=== PATIENT | male | born 1980 | race Caucasian/White ===

== ENCOUNTER → 2023-11-16 | Outpatient (CLI) | payer OTHER, SELFPAY ==
--- NOTE | 2023-11-16 08:20 | RAD_ITS ---
STUDY: X-RAY - ESOPHAGUS (BARIUM SWALLOW) WITH FLUOROSCOPY REASON FOR EXAM: Male, 43 years old. Dysphagia, pharyngeal phase TECHNIQUE: 18 view(s) of the esophagus were obtained following swallowing of barium. FLUOROSCOPY TIME (if supplied): (27 seconds) minutes/seconds. 9.71 mGy. COMPARISON: None. FINDINGS: There is no demonstrated esophageal foreign body. There is no demonstrated stricture or mucosal abnormality. Normal gastroesophageal junction, without a demonstrated hiatal hernia. The patient ingested a 12 mm tablet of barium. The tablet is trapped at the gastroesophageal junction. Normal visualized aortic arch and descending thoracic aorta. Normal visualized pulmonary parenchyma. Normal visualized osseous structures of the thorax. RAD/Esophagus Dual Contrast IMPRESSION: The ingested 12 mm tablet of barium is trapped at the gastroesophageal junction. Electronically Signed: Alok Holt MD at 13:19 EDT ,
== END | disposition home or self-care (01) ==
LOC: RAD 08:19
PROVIDERS: PCP Physician Assistant; Referring Provider Otolaryngology; Visit Provider Otolaryngology
DX: R13.13 Dysphagia, pharyngeal phase (principal)
CPT/HCPCS: 74221

== ENCOUNTER → 2025-01-27 | Outpatient (CLI) | payer OTHER, SELFPAY ==
--- OUTSIDE RECORDS SUMMARY | 2025-01-27 15:26 | XMS RPT_ITS | CCD ---
Author Organization [facility] Care Team Providers Care Commercial Crabber Name Role Phone Alok Pinto PA-C Unavailable Alok Pinto PA-C Unavailable Farhan GAGNON, Dr. White Unavailable [phone] Mana Rm MA Unavailable Unavailable Zbigniew Morales LPN Unavailable Unavailable Sujey Pinto Unavailable Unavailable Unavailable Unavailable Christopher Real Referring Unavailable Christopher Real Attending Unavailable Alok Pinto Primary Care Unavailable Patience Schneider LPN Unavailable (Ching), [facility] Unavailable Medications Completed/Discontinued Medications Medication Drug Class(es) Dates Sig (Normalized) Sig (Original) amoxicillin 875 mg / clavulanate 125 mg oral tablet (6 sources) Penicillin-class Antibacterial Start: 10-19-2023 End: 10-29-2023 amoxicillin 875 mg-potassium clavulanate 125 mg tablet ; 1 (one) tablet two times daily for 10 days Quantity: 20 {Tablet} Refills: 0 Ordered: 19-Oct-2023 RADHA Pinto Start: 19-Oct-2023 End: 29-Oct-2023 Status: Inactive fluconazole 150 mg oral tablet (4 sources) Azole Antifungal Start: 12-02-2023 End: 12-09-2023 fluconazole 150 mg tablet ; 1 (one) tablet daily for 7 days Quantity: 7 {Tablet} Refills: 0 Ordered: 02-Dec-2023 OLIVA Schneider Start: 02-Dec-2023 End: 09-Dec-2023 Status: Inactive ketoconazole 20 mg/ml topical cream (5 sources) Azole Antifungal Start: 01-07-2024 End: 02-04-2024 ketoconazole 2 % topical cream ; 1 application 2 times per day for 28 days Quantity: 80 {Gram} Refills: 0 Ordered: 07-Jan-2024 RADHA Pinto Start: 07-Jan-2024 End: 04-Feb-2024 Status: Inactive Start: 11-03-2023 End: 11-17-2023 ketoconazole 2 % topical cre am ; 1 application 2 times per day for 14 days Quantity: 60 {Gram} Refills: 0 Ordered: 03-Nov-2023 RADHA Pinto Start: 03-Nov-2023 End: 17-Nov-2023 Status: Inactive Problems Active Problems Problem Classification Problem Date Documented Da te Episodic/Chronic Abdominal hernia (20 sources) Umbilical hernia; Translations: [Umbilical hernia without obstruction or gangrene] 08-28-2023 Episodic Allergic reactions (4 sources) Contact dermatitis; Translations: [Unspecified contact dermatitis, unspecified cause] 02-18-2024 Episodic Mycoses (14 sources) Dermatophytosis; Translations: [Dermatophytosis, unspecified] 11-03-2023 Episodic Other connective tissue disease (20 sources) Prepatellar bursitis of right knee; Translations: [Prepatellar bursitis, right knee] 08-28-2023 Episodic Other gastrointestinal disorders (1 source) Dysphagia, pharyngeal phase; Translations: [Dysphagia, pharyngeal phase] Onset: 11-19-2023 Episodic Other screening for suspected conditions (not mental disorders or infectious disease) (20 sources) Patient encounter status; Translations: [Encounter for screening for malignant neoplasm of colon] 08-28-2023 Episodic Other upper respiratory disease (20 sources) Nasal congestion; Translations: [Nasal congestion] 08-28-2023 Episodic Other upper respiratory infections (12 sources) Sinusitis; Translations: [Chronic sinusitis, unspecified] 10-19-2023 Chronic Past or Other Problems Problem Classification Problem Date Documented Da te Episodic/Chronic Unclassified (12 sources) Well adult male - The patient feels well with minor complaints (Patient interested in screening for colorectal cancer since he recently had a friend younger than him who from colon cancer; patient also is concerned for restricted airflow and snoring which he believes is due to obstruction of his nose, he is interested in referral to ENT; patient also notes concern for umbilical hernia which he believes appeared after gaining weight, patient denies pain and states the mass is soft.), has good energy level and is sleeping poorly. The patient has a balanced diet and takes supplemental vitamins (vitamin D). The patient does not exercise. The patient sleeps 5 hours per night. 08-28-2023 Unclassified (14 sources) Knee pain - The onset of the knee pain has been sudden following an incident not at work (Fell onto knee on concrete floor.) and has been occurring in a persistent pattern for 3 weeks. The course has been increasing. The knee pain is mild to moderate in the right knee. The knee pain is characterized as a burning sensation. Note for Knee pain: Pt went to urgent care in [place] DX: Bursitis, given ATB, cephalexin-finished yesterday. Feels like One big bruise on knee down leg 06-30-2023 Unclassified (6 sources) Cold Symptoms - Symptoms include nasal congestion, runny nose, sore throat and dry cough, but do not include fever. The onset was 8 day(s) ago. The symptoms occur constantly. The patient describes this as moderate in severity and worsening. Current treatment includes NSAIDs. 10-19-2023 Unclassified (5 sources) Rash - The rash has been occurring for 2 years. The course has been increasing. The rash is characterized as red and crusty. The rash was first seen on the upper extremity and the lower extremity. There has been associated erythema. There has been associated pain. Note for Rash: Patient has areas on both hands and both feet. Has had for several years, was treated before by phlebotomy lab assistant for feet, he believes a topical antifungal used which did help to improve symptoms. Patient believes it to be a fungal infection but states that symptoms are refractory to use of OTC Lotrimin and Gold Coates Powder. 11-03-2023 Unclassified (2 sources) Rash - Note for Rash: Patient seen in office 11/03/23 for tinea. Patient treated with ketoconazole cream for 6 weeks total and oral medication (fluconazole). Today is a good day, but has flares primarily when in contact with grass and insect bites. Last flare 02/02/24, has pictures of rash. 02-18-2024 Results Test Name Value Interpretation Reference Range Facility Esophagus Dual Contraston Esophagus Dual Contrast [facility] Imaging Services [address] [place] [address] Esophagus Dual Contrast MR#: [id number] Acct: [id number] Name: ESTEBAN DEL VALLE Rep #: [id number] : 1980 M 43 From: Alok argueta MD PCP: FEROZ Maradiaga Status: REG CLI Study: Esophagus Dual Contrast Date of Exam: 11/16/23 Exam# [id number] Ordering Dr: Christopher Real MD [id number] STUDY: X-RAY - ESOPHAGUS (BARIUM SWALLOW) WITH FLUOROSCOPY REASON FOR EXAM: Male, 43 years old. Dysphagia, pharyngeal phase TECHNIQUE: 18 view(s) of the esophagus were obtained following swallowing of barium. FLUOROSCOPY TIME (if supplied): (27 seconds) minutes/seconds. 9.71 mGy. COMPARISON: None. FINDINGS: There is no demonstrated esophageal foreign body. There is no demonstrated stricture or mucosal abnormality. Normal gastroesophageal junction, without a demonstrated hiatal hernia. The patient ingested a 12 mm tablet of barium. The tablet is trapped at the gastroesophageal junction. Normal visualized aortic arch and descending thoracic aorta. Normal visualized pulmonary parenchyma. Normal visualized osseous structures of the thorax. RAD/Esophagus Dual Contrast IMPRESSION: The ingested 12 mm tablet of barium is trapped at the gastroesophageal junction. Electronically Signed: Alok Holt MD at 13:19 EDT , CC: Dr. Christopher Real MD; FEROZ Maradiaga Extruding Machine Operator: Signed Normal [facility] COMPREHENSIVE METABOLIC PANE Chris 09-02-2023 Albumin [Mass/Vol] 4.4 g/dL Normal 3.6-5.1 [facility] Comment on above: Performed By: #### 7 600, [id number] #### [facility] of [address], [address] [place] [address] Braid Folder: Yahir Lewis MD Albumin/Globulin [Mass ratio] 1.8 {ratio} Normal 1.0-2.5 [facility] Comment on above: Performed By: #### 7 600, [id number] #### [facility] of [address], [address] [place] [address] Braid Folder: Yahir Lewis MD ALP [Catalytic activity/Vol] 67 U/L Normal 36-130 [facility] Comment on above: Performed By: #### 7 600, 18741 #### [facility] of [address], [address] [place] [address] Braid Folder: Yahir Lewis MD ALT [Catalytic activity/Vol] 24 U/L Normal 9-46 [facility] Comment on above: Performed By: #### 7 600, 99574 #### [facility] of [place] [address] Braid Folder: Yahir Lewis MD AST [Catalytic activity/Vol] 17 U/L Normal 10-40 [facility] Comment on above: Performed By: #### 7 600, 77809 #### [facility] of [address], [address] [place] [address] Braid Folder: Yahir Lewis MD Bilirubin [Mass/Vol] 0.6 mg/dL Normal 0.2-1.2 [facility] Comment on above: Performed By: #### 7 600, 23209 #### [facility] of [place] [address] Braid Folder: Yahir Lewis MD BUN/CREATININE RATIO SEE NOTE: Normal 6-22 [facility] Comment on above: Result Comment: Not Reported: BUN and Creatinine are within reference range. Performed By: #### 7 600, [id number] #### [facility] of [address], [address] [place] [address] Braid Folder: Yahir Lewis MD Calcium [Mass/Vol] 9.6 mg/dL Normal 8.6-10.3 [facility] Comment on above: Performed By: #### 7 600, 66811 #### [facility] of [address], [address] [place] [address] Braid Folder: Yahir Lewis MD Chloride [Moles/Vol] 105 mmol/L Normal 98-110 [facility] Comment on above: Performed By: #### 7 600, 75180 #### [facility] of [place] [address] Braid Folder: Yahir Lewis MD CO2 [Moles/Vol] 28 mmol/L Normal 20-32 [facility] Comment on above: Performed By: #### 7 600, 96656 #### [facility] of [place] [address] Braid Folder: Yahir Lewis MD Creatinine [Mass/Vol] 0.92 mg/dL Normal 0.60-1.29 [facility] Comment on above: Performed By: #### 7 600, 90346 #### [facility] of [place] [address] Braid Folder: Yahir Lewis MD GFR/1.73 sq M.predicted among non-blacks MDRD (S/P/Bld) [Vol rate/Area] 107 mL/min/{1.73_m2} Normal > OR = 60 [facility] Comment on above: Performed By: #### 7 600, 39482 #### [facility] of [place] [address] Braid Folder: Yahir Lewis MD Globulin (S) [Mass/Vol] 2.4 g/dL Normal 1.9-3.7 [facility] Comment on above: Performed By: #### 7 600, 16744 #### [facility] of [place] [address] Braid Folder: Yahir Lewis MD Glucose [Mass/Vol] 100 mg/dL High 65-99 [facility] Comment on above: Result Comment: Fasting reference interval For someone without known diabetes, a glucose value between 100 and 125 mg/dL is consistent with prediabetes and should be confirmed with a follow-up test. Performed By: #### 7 600, 27664 #### [facility] [address], [address] [place] [address] Braid Folder: Yahir Lewis MD Potassium [Moles/Vol] 5.1 mmol/L Normal 3.5-5.3 [facility] Comment on above: Performed By: #### 7 600, 20160 #### [facility] [place] [address] Braid Folder: Yahir Lewis MD Protein [Mass/Vol] 6.8 g/dL Normal 6.1-8.1 [facility] Comment on above: Performed By: #### 7 600, 52972 #### [facility] [place] [address] Braid Folder: Yahir Lewis MD Sodium [Moles/Vol] 140 mmol/L Normal 135-146 [facility] Comment on above: Performed By: #### 7 600, 07935 #### [facility] [place] [address] Braid Folder: Yahir Lewis MD Urea nitrogen [Mass/Vol] 16 mg/dL Normal 7-25 [facility] Comment on above: Performed By: #### 7 600, 53979 #### [facility] of [place] [address] Braid Folder: Yahir Lewis MD LIPID PANEL, [facility] 08-14 Cholesterol [Mass/Vol] 186 mg/dL Normal <200 [facility] Comment on above: Performed By: #### 7 600, 85612 #### [facility] [place] [address] Braid Folder: Yahir Lewis MD Cholesterol in HDL [Mass/Vol] 38 mg/dL Low > OR = 40 [facility] Comment on above: Performed By: #### 7 600, 19363 #### [facility] [place] [address] Braid Folder: Yahir Lewis MD Cholesterol in LDL [Mass/Vol] 117 mg/dL High [facility] Comment on above: Result Comment: Refe rence range: <100 Desirable range <100 mg/dL for primary prevention; <70 mg/dL for patients with CHD or diabetic patients with > or = 2 CHD risk factors. LDL-C is now calculated using the Chester calculation, which is a validated novel method providing better accuracy than the Friedewald equation in the estimation of LDL-C. Demarco SS et al. GIOVANI. 2013;310(19): 9189-5208 (http://education.Fanergies/faq/UDL814) Performed By: #### 7 600, 36773 #### [facility] [place] [address] Braid Folder: Yahir Lewis MD Cholesterol.total/C holesterol in HDL [Mass ratio] 4.9 {ratio} Normal <5.0 [facility] Comment on above: Performed By: #### 7 600, 74935 #### [facility] [place] [address] Braid Folder: Yahir Lewis MD NON HDL CHOLESTEROL 148 mg/dL (calc) High <130 [facility] Comment on above: Result Comment: For patients with diabetes plus 1 major ASCVD risk factor, treating to a non-HDL-C goal of <100 mg/dL (LDL-C of <70 mg/dL) is considered a therapeutic option. Performed By: #### 7 600, 20683 #### [facility] [place] [address] Braid Folder: Yahir Lewis MD Triglyceride [Mass/Vol] 193 mg/dL High <150 [facility] Comment on above: Performed By: #### 7 600, 73766 #### [facility] [address] [address] Braid Folder: Yahir Lewis MD Laboratory - Chemistry and C hemistry - challengeon 09-01-2023 Albumin [Mass/Vol] 4.4 g/dL Normal 3.6 - 5.1 g/dL [facility], [facility].; [facility] Albumin/Globulin [Mass ratio] 1.8 {ratio} Normal 1.0 - 2.5 [facility], [facility].; [facility] ALP [Catalytic activity/Vol] 67 U/L Normal 36 - 130 U/L [facility], [facility].; [facility] ALT [Catalytic activity/Vol] 24 U/L Normal 9 - 46 U/L [facility], [facility].; [facility] AST [Catalytic activity/Vol] 17 U/L Normal 10 - 40 U/L [facility], [facility].; [place] [employer] [facility], [facility]. Bilirubin [Mass/Vol] 0.6 mg/dL Normal 0.2 - 1.2 mg/dL [facility], [facility].; [place] [employer] [facility] Calcium [Mass/Vol] 9.6 mg/dL Normal 8.6 - 10. 3 mg/dL [facility], [facility].; [place] [employer] [facility] Chloride [Moles/Vol] 105 mmol/L Normal 98 - 110 mmol/L [facility], [facility].; [place] [employer] [facility] Cholesterol [Mass/Vol] 186 mg/dL Normal [facility], [facility].; [facility] Cholesterol in HDL [Mass/Vol] 38 mg/dL Abnormal [facility], [facility].; [place] [employer] [facility] Cholesterol in LDL [Mass/Vol] 117 mg/dL Abnormal [facility], [facility].; [place] [employer] CO2 [Moles/Vol] 28 mmol/L Normal 20 - 32 mmol/L [facility], [facility].; [place] [employer] [facility] Creatinine [Mass/Vol] 0.92 mg/dL Normal 0.60 - 1.29 mg/dL [facility], [facility].; [place] [employer] [facility] GFR/1.73 sq M.predicted among non-blacks MDRD (S/P/Bld) [Vol rate/Area] 107 mL/min/{1.73_m2} Normal [facility], [facility].; [facility], [facility] Glucose [Mass/Vol] 100 mg/dL Abnormal 65 - 99 mg/dL [facility].; [facility], [facility] Potassium [Moles/Vol] 5.1 mmol/L Normal 3.5 - 5.3 mmol/L [facility]; [facility], [facility] Protein [Mass/Vol] 6.8 g/dL Normal 6.1 - 8.1 g/dL [facility]; [facility], [facility] Sodium [Moles/Vol] 140 mmol/L Normal 135 - 146 mmol/L [facility]; [facility], [facility] Triglyceride [Mass/Vol] 193 mg/dL Abnormal [facility]; [facility], [facility] Urea nitrogen [Mass/Vol] 16 mg/dL Normal 7 - 25 mg/dL [facility]; [facility], [facility] No Panel Informationon 09-01 BUN/CREATININE RATIO SEE NOTE: Normal 6 - 22 [facility]; [facility], [facility] CHOL/HDLC RATIO 4.9 Normal [facility]; [facility], [facility] GLOBULIN 2.4 Normal 1.9 - 3.7 [facility]; [facility], [facility] NON HDL CHOLESTEROL 148 Abnormal [facility]; [facility], [facility] Vital Signs Date Time Vital Sign Value Performing Clinician Facility 02-18-2024 14:30-040 Body height 190.5 cm Zbigniew Morales LPN [facility], [facility].; [facility], [facility] 02-18-2024 14:30-0400 Body mass index (BMI) [Ratio] 32 kg/m2 Zbigniew Morales LPN [facility], [facility].; [facility], [facility] 02-18-2024 14:30-040 Body surface area Derived from formula 2.44 m2 Zbigniew Morales LPN [facility], [facility].; [facility], [facility] 02-18-2024 14:30-040 Body weight 116.12 kg Zbigniew Morales LPN [facility], [facility].; [facility], [facility]. 02-18-2024 14:30-0400 Diastolic blood pressure 73 mm[Hg] Zbigniew Morales LPN [facility], [facility].; [facility], [facility]. Comment on above: Patient Position: Sitting; Cuff Location : Left Arm; Cuff Size: Standard 02-18-2024 14:30-0400 Heart rate 69 /min Zbigniew Morales LPN [facility], [facility].; [facility], [facility]. Comment on above: Pattern: Regular 02-18-2024 14:30-0400 Systolic blood pressure 118 mm[Hg] Zbigniew Morales LPN [facility], [facility].; [facility], [facility]. Comment on above: Patient Position: Sitting; Cuff Location : Left Arm; Cuff Size: Standard 11-03-2023 10:17-0400 Body height 190.5 cm Zbigniew Morales RADIAL DRILL OPERATOR [facility], [facility].; [facility], [facility]. 11-03-2023 10:17-0400 Body mass index (BMI) [Ratio] 32.37 kg/m2 Zbigniew Morales RADIAL DRILL OPERATOR [facility], [facility].; [facility], [facility]. 11-03-2023 10:17-0400 Body surface area Derived from formula 2.45 m2 Zbigniew Morales RADIAL DRILL OPERATOR [facility], [facility].; [facility], [facility]. 11-03-2023 10:17-0400 Body weight 117.48 kg Zbigniew Morales RADIAL DRILL OPERATOR [facility], [facility].; [facility], [facility]. 11-03-2023 10:17-0400 Diastolic blood pressure 61 mm[Hg] Zbigniew Morales LPN [facility], [facility].; [place] [employer] [facility], [facility]. Comment on above: Patient Position: Sitting; Cuff Location : Left Arm; Cuff Size: Standard 11-03-2023 10:17-0400 Heart rate 59 /min Zbigniew Morales LPN [facility], [facility].; [place] [employer] [facility] Comment on above: Pattern: Regular 11-03-2023 10:17-0400 Systolic blood pressure 96 mm[Hg] Zbigniew Morales LPN [facility], [facility].; [facility], [facility]. Comment on above: Patient Position: Sitting; Cuff Location : Left Arm; Cuff Size: Standard 10-19-2023 09:59-0400 Body height 190.5 cm Zbigniew Morales LPN [facility], [facility].; [facility] 10-19-2023 09:59-0400 Body mass index (BMI) [Ratio] 33.25 kg/m2 Zbigniew Morales LPN [facility], [facility].; [facility] 10-19-2023 09:59-0400 Body surface area Derived from formula 2.48 m2 Zbigniew Morales LPN [facility], [facility].; [facility] 10-19-2023 09:59-0400 Body temperature 96.7 [degF] Zbigniew Morales RADIAL DRILL OPERATOR [facility], [facility].; [facility], [facility]. 10-19-2023 09:59-0400 Body weight 120.66 kg Zbigniew Morales RADIAL DRILL OPERATOR [facility], [facility].; [facility] 10-19-2023 09:59-0400 Diastolic blood pressure 51 mm[Hg] [facility], [facility].; Jean [employer] [facility], [employer]. Comment on above: Patient Position: Sitting; Cuff Location : Left Arm; Cuff Size: Standard 10-19-2023 09:59-0400 Heart rate 55 /min Zbigniew Morales LPN [facility], [facility].; [place] [employer] [facility], [employer]. Comment on above: Pattern: Regular 10-19-2023 09:59-0400 Inhaled oxygen concentration 21 % Zbigniew Morales [facility], [facility].; [place] [employer] [facility]. Comment on above: Room air 10-19-2023 09:59-0400 SaO2% (BldA) [Mass fraction] 97 % Zbigniew Morales [facility], [facility].; [place] [employer] [facility], [facility]. 10-19-2023 09:59-0400 Systolic blood pressure 84 mm[Hg] Zbigniew Morales LPN [facility], [facility].; [facility] [employer], [employer]. Comment on above: Patient Position: Sitting; Cuff Location : Left Arm; Cuff Size: Standard 08-28-2023 13:44-0500 Body height 190.5 cm Mana Rm MA [facility], [facility].; [facility], [facility]. 08-28-2023 13:44-0500 Body mass index (BMI) [Ratio] 33.12 kg/m2 Mana Rm MA [facility], [facility].; [facility] 08-28-2023 13:44-0500 Body surface area Derived from formula 2.47 m2 Mana Rm MA [facility], [facility].; [facility], [facility]. 08-28-2023 13:44-0500 Body weight 120.2 kg Mana Rm MA [facility], [facility].; [facility], [facility]. 08-28-2023 13:44-0500 Diastolic blood pressure 76 mm[Hg] Mana Rm MA [facility], [facility].; [facility], [facility]. Comment on above: Patient Position: Sitting; Cuff Location : Left Arm; Cuff Size: Standard 08-28-2023 13:44-0500 Heart rate 60 /min Mana Rm MA [facility], [facility].; [place] [employer] [facility], [facility]. Comment on above: Pattern: Regular 08-28-2023 13:44-0500 Systolic blood pressure 118 mm[Hg] Mana Rm MA [facility], [facility].; [facility], [facility]. Comment on above: Patient Position: Sitting; Cuff Location : Left Arm; Cuff Size: Standard 06-30-2023 13:53-0500 Body height 190.5 cm Zbigniew Morales LPN [facility], [facility]. 06-30-2023 13:53-0500 Body mass index (BMI) [Ratio] 33 kg/m2 Zbigniew Morales LPN [facility] [place] [employer] [facility], [facility]. 06-30-2023 13:53-0500 Body surface area Derived from formula 2.47 m2 Zbigniew Morales LPN [facility], [facility]. 06-30-2023 13:53-0500 Body weight 119.75 kg Zbigniew Morales LPN [facility] [place] [employer] [facility] 06-30-2023 13:53-0500 Diastolic blood pressure 72 mm[Hg] Zbigniew Morales LPN [facility] Comment on above: Patient Position: Sitting; Cuff Location : Left Arm; Cuff Size: Standard 06-30-2023 13:53-0500 Heart rate 61 /min Zbigniew Morales RADIAL DRILL OPERATOR [facility] [employer] Comment on above: Pattern: Regular 06-30-2023 13:53-0500 Systolic blood pressure 116 mm[Hg] Zbigniew Morales LPN [facility] [employer] Comment on above: Patient Position: Sitting; Cuff Location : Left Arm; Cuff Size: Standard Encounters Encounter Date Encounter Type Care Provider Facility Start: 02-18-2024 End: 02-18-2024 Office outpatient visit 15 minutes Alok Moctezumaetler PA-C Work Phone: [facility] [employer] [employer]. Start: 12-02-2023 End: 12-02-2023 Procedure Alok Moctezumaetler PA-C Work Phone: [facility] [employer]. Start: 11-16-2023 End: 11-16-2023 ambulatory [facility] Work Phone: Start: 11-16-2023 End: 11-16-2023 Patient encounter procedure [facility], [facility] Work Phone: Start: 11-03-2023 End: 11-03-2023 Office outpatient visit 15 minutes Alok Moctezumaetler PA-C Work Phone: [employer], [employer]. Start: 10-19-2023 End: 10-19-2023 Office outpatient visit 15 minutes Evetteke Blair PA-C Work Phone: [employer], [employer]. Start: 09-25-2023 End: 09-25-2023 Historical Summary Alok Moctezumaetler PA-C Work Phone: [employer], [employer]. Start: 09-01-2023 End: 09-01-2023 Orders Alok Moctezumaetler PA-C Work Phone: [facility]. Start: 08-28-2023 End: 08-28-2023 Patient encounter status Alok Pinto PA-C Work Phone: [employer]; [facility] Start: 08-28-2023 End: 08-28-2023 Periodic preventive med est patient 40-64yrs Alok Pinto PA-C Work Phone: [facility]. Start: 07-07-2023 End: 07-07-2023 Orders Alok Pinto PA-C Work Phone: [facility] Start: 06-30-2023 End: 06-30-2023 Office outpatient new 20 minutes Alok Pinto PA-C Work Phone: [facility] Patient encounter status Alok Pinto PA-C Work Phone: [employer]; [facility] Procedures Date Procedure Procedure Detail Performing Clinician Start: 11-16-2023 Radiography of esophagus Start: 08-28-2023 End: 08-28-2023 Depression screening Alok Pinto PA-C Work Phone: Start: 08-28-2023 End: 09-25-2023 Oncology colorectal screening hawa 10 dna markrs Alok Pinto PA-C Work Phone: Start: 08-28-2023 End: 08-28-2023 Scr dep neg, no plan reqd Alok Salazar tler PA-C Work Phone: FIT DNA test Alok Hodges r PA-[facility] Work Phone: Comment on above: Negative Finding. co loguard Plan of Treatment Date Care Activity Detail Author Start: 09-01-2023 Lipid panel LIPID PANEL ([id number]) Start: 01-Sep-2023 Request [facility]; [facility] Start: 09-01-2023 Nursing evaluation o f patient and report Medical; Nurse visit - fasting labs--LEH [facility]. Start: 01-Sep-2023 8:40 ROOM, PROCEDURE (DRAW) Appointment Request [facility]. Start: 09-01-2023 Comprehensive metabo lic panel CMP w/ GFR* ([id number]) Start: 01-Sep-2023 8:36 Request [facility].; [employer] Start: 08-28-2023 Comprehensive metabo lic panel CMP w/ GFR* ([id number]) Start: 28-Aug-2023 Request [facility].; [employer], [facility]. Start: 08-28-2023 Lipid panel LIPID PANEL ([id number]) Start: 28-Aug-2023 Request [facility].; [employer] Start: 08-28-2023 Oncology colorectal screening hawa 10 dna markrs COLOGUARD COLON CANCER SCREENING USING STOOL DNA AT POINT OF CARE ([id number]) Start: 28-Aug-2023 Intent [facility].; [employer] Start: 08-28-2023 Patient encounter procedure Medical; PHYSICAL - AWV [facility]. Start: 28-Aug-2023 13:50 RADHA Pinto Appointment Request [facility]. Payers Date Payer Category Payer Private Health Insurance [id number] 2023 Self-pay Unknown [facility] Unknown [id number] Social History Date Type Detail Facility Alcohol Use Alcohol Use [facility] [employer] [employer] Tobacco Use: Tobacco Use: ; N ever smoker. [facility].; [employer] Start: [address] [facility] Never smoked tobacco [facility].; [employer] Work Phone: Evaluation note Note Date & Type Note Facility Evaluation note No assessment information availa [facility] Work Phone: Summary Purpose Family History No Family History Records FoundNo Family History Records Found Advance Directives No Advanced Directives Records FoundNo Advanced Directives Records Found Chief Complaint and Reason for Visit Chief Complaint [id number] Additional Source Comments (unrecognized sect ion and content) No Status Records FoundNo Status Records Found INFORMATION SOURCE (unrecogn ized section and content) DATE CREATED AUTHOR 09/09/2023 [facility] DATE CREATED AUTHOR AUTHOR'S ORGANIZ ATION 11/21/2023 [facility] Care Teams (unrecognized sec tion and content) Team Status: Active Member Role Status Dates FEROZ Maradiaga Primary Care Provider Active Team Status: Inactive Member Role Status Dates Dr. Chrisotpher Real MD Attending Provider, Referring Pr ovider Active FEROZ Maradiaga Primary Care Provider Active Goals (unrecognized section and content) Goals may be documented in a n alternate section FOR RECORDS PERTAINING TO PATIENTS WHO ARE OR HAVE BEEN ENROLLED IN A CHEMICAL DEPENDENCY/SUBSTANCEABUSE PROGRAM, SOME INFORMATION MAY BE OMITTED. This clinical summary was aggregated from multiple sources. Caution should be exercised in using it in the provision of clinical care. This summary normalizes information from multiple sources, and as a consequence, information in this document may materially change the coding, format and clinical context of patient data. In addition, data may be omitted in some cases. CLINICAL DECISIONS SHOULD BE BASED ON THE PRIMARY CLINICAL RECORDS. [employer] provides no warranty or guarantee of the accuracy or completeness of information in this document.
== END | disposition home or self-care (01) ==
LOC: LABSPEC 11:16
PROVIDERS: PCP Physician Assistant; Referring Provider Nurse Practitioner Family; Visit Provider Nurse Practitioner Family
DX: L30.9 Dermatitis, unspecified (principal)
CPT/HCPCS: 87101